=== PATIENT | female | born 1930 | race Caucasian/White ===

== ENCOUNTER 2017-04-21 12:30 | Inpatient (IN) | payer OTHER ==
[~2017-04-21] VITALS: Ht 177.8 cm; Wt 58.1 kg
[~2017-04-21 12:30] MED LIST: ACET325 PO; ALBU90OI6 INH; ASCO500 PO; ASPI81EC PO; Aspirin EC81 MG PO; CALCAVITDA PO; CALCIUM PO; CEFP250 PO; CENTRUM SILVER1 EAC3 PO; CLIN300 PO; CLON.2TP TOP; CODACE30 PO; CRANBERRY CAPS PO; CYAN500 SL; Calcium Carbon500 MG PO; DOCU100 PO; DOXY100 PO; Diclofenac Pota50 MG PO; FISH1000 PO; HYDACE5 PO; HYDSUL200 PO; KETO10 PO; LEVSOD75 PO; LOSA50 PO; LOSHYD PO; MELO7.5 PO; MULVITMINF PO; NATURE'S TEARS15 M1 BOTHEYES; NIFE60ER PO; Nifedical Xl30 MG PO; OMEG1CAP30 PO; OMEP20ER PO; PRAV20 PO; Pedi-Dri 100,0060 GM TOP; RXCODACET PO; SUSTENEX PO; TELM80 PO; TRIE10TC TOP; UBID10 PO; VALACYCLOVIR1000 MG PO; [UNRECOGNIZED DRUG - CODE] PO
[2017-04-21 12:49] LABS: Source, Urine Catheter
[2017-04-21 13:05] LABS: Bilirubin, Urine Neg (Neg); Blood, Urine 2+ (Neg); Glucose Qualitative, Urine Neg (Neg); Ketones, Urine Neg (Neg); Leukocyte Esterase, Urine 1+ (Neg); Nitrite, Urine Neg (Neg); Protein, Urine Neg (Neg); Urobilinogen, Urine NORM (Normal)
[2017-04-21 13:07] LABS: BASOPHILS ABSOLUTE AUTO 0.02 K/mm3 (0.00-0.23); BASOPHILS PERCENT AUTO 0 % (0-2); EOSINOPHILS ABSOLUTE AUTO 0.16 K/mm3 (0.00-0.68); EOSINOPHILS PERCENT AUTO 1 % (0-6); Hematocrit 31.1 % (33.0-51.0); Hemoglobin 9.6 g/dL (11.5-16.0); IMMATURE GRAN ABSOLUTE AUTO 0.13 K/mm3 (0.00-0.10); IMMATURE GRAN PERCENT AUTO 1 % (0-1); LYMPHOCYTES ABSOLUTE AUTO 3.79 K/mm3 (0.84-5.20); LYMPHOCYTES PERCENT AUTO 17 % (21-46); MONOCYTES ABSOLUTE AUTO 1.57 K/mm3 (0.16-1.47); MONOCYTES PERCENT AUTO 7 % (4-13); Mean Corpuscular HGB 27.7 pg (26.0-34.0); Mean Corpuscular HGB Conc 30.9 g/dL (31.5-36.5); Mean Corpuscular Volume 90 fL (80-100); Mean Platelet Volume 8.3 fL (9.1-12.4); NEUTROPHILS ABSOLUTE AUTO 17.19 K/mm3 (1.96-9.15); NEUTROPHILS PERCENT AUTO 75 % (41-73); Platelet Count 391 K/mm3 (150-400); RDW Coefficient Variation 15.2 % (11.7-14.2); RDW Standard Deviation 49.6 fL (35.1-46.3); Red Blood Cell Count 3.47 M/mm3 (3.80-5.20); White Blood Cell Count 22.86 K/mm3 (4.00-11.30)
[2017-04-21 13:16] LABS: Appearance, Urine Clear (Clear); Color, Urine Yellow (P-Yellow)
[2017-04-21 13:17] LABS: Amorphous Light (0-Heavy); Bacteria Mod /hpf; Squamous Epithelial Cells Few /hpf (Few)
[2017-04-21 13:18] LABS: Albumin/Globulin Ratio 0.7 (0.8-1.8); Bilirubin, Total 0.3 mg/dL (0.1-1.0); Bun/Creatinine Ratio 18.6 (12.0-20.0); Calcium, Blood 8.8 mg/dL (8.5-10.1); Creatinine, Blood 1.72 mg/dL (0.40-1.00); Globulin, Blood 4.1 g/dL (2.2-4.0); Potassium, Blood 4.7 mmol/L (3.5-5.5); Total Protein, Blood 7.1 g/dL (6.4-8.2)
[2017-04-21] MEDS ORDERED: CALTRATE 600 +1 EACH PO (13:41)
[2017-04-21] MEDS ORDERED: DIPATRL PO (13:41)
[2017-04-21] MEDS ORDERED: HYDSUL200 PO (13:42)
[2017-04-21] MEDS ORDERED: LEVSOD75 PO (13:42)
[2017-04-21] MEDS ORDERED: Prozac40 MG PO (13:42)
[2017-04-21] MEDS ORDERED: LOSARTAN-HCTZ1 EAC1 PO (13:43)
[2017-04-21] MEDS ORDERED: MEMA10 PO (13:43)
[2017-04-21] MEDS ORDERED: OLAN2.5 PO (13:45)
[2017-04-21] MEDS ORDERED: NIFE60ER PO (13:45)
[2017-04-21] MEDS ORDERED: VITAMIN D32000 UNI1 PO (13:46)
[2017-04-21] MEDS ORDERED: VIBERZI100 MG PO (13:46)
[2017-04-21] MEDS ORDERED: ACET325 PO (13:47)
[2017-04-21] MEDS ORDERED: Ativan1 MG PO (13:48)
--- NOTE | 2017-04-21 16:40 | NUR ---
NEW ER ADMIT APPROX 1630. BROUGHT TO ER FROM [facility]. SHE IS A/O X3-4. DX PNEUMONIA, SEPSIS. GIVEN IV FLUIDS & ANTIBX IN ER. STATE WEAKNESS/FATIGUE. STATE NO COUGH, NO SOB. LUNGS DECREASED, BIOX 98% RA. TEMP 100.8, SHE WAS GIVEN 1 GRAM TYLENOL IN ED. SHE STATE DNR/DNI, ORDER PLACED BY ER DR. CARLOS HERNÁNDEZ, WILL HAVE DR POWELL ADDRESS WHEN IN TO SEE PT. NO ORDERS @ THIS TIME. PT RESTING/SLEEPING.
[2017-04-21] MEDS ORDERED: ALUM-MAG HYDRO360 ML PO (16:56)
[2017-04-21] MEDS ORDERED: Artificial Tea1 EACH BOTHEYES (16:58)
[2017-04-21] MEDS ORDERED: BISA10S PR (17:01)
[2017-04-21] MEDS ORDERED: Anti-Diarrhea2 MG PO (18:43)
[2017-04-21] MEDS ORDERED: Milk Of Ma400 MG/5 M PO (18:45)
[2017-04-21] MEDS ORDERED: Systane 0.3-0.1 EACH BOTHEYES (18:47)
[2017-04-22 05:33] LABS: BASOPHILS ABSOLUTE AUTO 0.02 K/mm3 (0.00-0.23); BASOPHILS PERCENT AUTO 0 % (0-2); EOSINOPHILS PERCENT AUTO 1 % (0-6); Hematocrit 29.8 % (33.0-51.0); Hemoglobin 9.4 g/dL (11.5-16.0); IMMATURE GRAN ABSOLUTE AUTO 0.06 K/mm3 (0.00-0.10); IMMATURE GRAN PERCENT AUTO 0 % (0-1); LYMPHOCYTES PERCENT AUTO 15 % (21-46); MONOCYTES ABSOLUTE AUTO 1.54 K/mm3 (0.16-1.47); MONOCYTES PERCENT AUTO 9 % (4-13); Mean Corpuscular HGB 28.3 pg (26.0-34.0); Mean Corpuscular HGB Conc 31.5 g/dL (31.5-36.5); Mean Corpuscular Volume 90 fL (80-100); Mean Platelet Volume 8.6 fL (9.1-12.4); NEUTROPHILS ABSOLUTE AUTO 12.21 K/mm3 (1.96-9.15); NEUTROPHILS PERCENT AUTO 75 % (41-73); Platelet Count 280 K/mm3 (150-400); RDW Coefficient Variation 15.3 % (11.7-14.2); Red Blood Cell Count 3.32 M/mm3 (3.80-5.20); White Blood Cell Count 16.33 K/mm3 (4.00-11.30)
[2017-04-22 05:58] LABS: Bun/Creatinine Ratio 19.1 (12.0-20.0); Calcium, Blood 7.9 mg/dL (8.5-10.1); Creatinine, Blood 1.57 mg/dL (0.40-1.00); Potassium, Blood 4.6 mmol/L (3.5-5.5)
[2017-04-22 06:00] LABS: Thyroid Stimulating Hormone 1.8 uIU/mL (0.360-4.800)
--- NOTE | 2017-04-22 06:09 | NUR ---
SHIFT SUMMARY: PATIENT IS A&OX4 UP TO BATHROOM WITH WALKER AND MINIMAL ASSIST OF ONE, VS ARE STABLE NO COMPLIANTS OF PAIN, NO RESPIRATORY DISTRESS. WILL CONTINUE TO MONITOR.
--- NOTE | 2017-04-22 16:42 | NUR ---
SUMMARY PT HAS BEEN A/O X3 TODAY, SHE IS SOMEWHAT [place], PLEASANT/COOPERATIVE AFFECT. LBKA, SHE IS ABLE TO PUT ON & TAKE OFF PROSTHESIS WITH SBA TO BR. SHE STATE CONTINUING FATIGUE HOWEVER STATE FEELING IMPROVED. LOW GRADE TEMP THIS AM, HOWEVER NORMAL THIS KIAH @ 98.4, NO CHILLS OR SHAKES TODAY. IV ANTIBX CONTINUE, WBC TRENDING DOWN @ 16.3
--- NOTE | 2017-04-23 04:26 | NUR ---
SHIFT SUMMARY NO ACUTE CHANGES TO REPORT OVERNIGHT, PT HAS SLEPT FOR MOST OF THE NIGHT AND HAS NOT HAD ANY COMPLAINTS. MEDICATED X1 FOR GAS PAIN WITH TYLENOL. VITALS STABLE. IV ANTIBIOTICS INFUSED PER ORDERS. PT A/OX4. PLESANT AND COOPERATIVE WITH CARE. BED IN LOWEST POSITION, CALL LIGHT WITHIN REACH. WILL CONTINUE TO MONITOR AND REPORT TO ONCOMING RN.
--- NOTE | 2017-04-23 12:50 | NUR ---
PATIENT SITTING IN BED EATING LUNCH TRAY DENIES DISTRESS; STAB SETTER AND DRILLER CONSULT COMPLETE.
--- NOTE | 2017-04-23 14:50 | NUR ---
Mrs. Samuel was awake and welcoming. She is slightly confused and a little repetitive. She tells me that she is living in assited living and her has remained in their home. She misses being near him, but states she feels safe and cared for by her facility and staff. She had no complaints or concerns. She smiles easily and appeared to enjoy companionship and conversation. I provided encouragement and prayer. I will remain available.
[2017-04-23] MEDS ORDERED: CEFP250 PO (14:51)
--- NOTE | 2017-04-23 16:39 | NUR ---
DISCHARGE SUMMARY PT DISCHARGE WITH SPOUSE POV TO RETURN TO [facility]; NO ACUTE DISTRESS NO PAIN; IV DISCONTINUED INTACT SITE CARE GIVEN; ALL MED CHANGES OR ADDITIONS FAXED TO [facility]; ASSISTED TO CAR VIA W/C
[2017-05-10] MEDS ORDERED: DIPATRL (10:18)
[2017-05-10] MEDS ORDERED: Prozac40 MG PO (10:18)
[2018-04-30] MEDS ORDERED: Cipro250 MG PO (09:45)
[2018-05-01] MEDS ORDERED: VIBERZI100 MG PO (16:43)
[2018-05-03] MEDS ORDERED: LORA1 PO (10:23)
[2018-05-03] MEDS ORDERED: ATROPINE 0.01%-10 ML SL (10:23)
[2018-05-03] MEDS ORDERED: SCOPOLAMINE1 EACH TOP (10:24)
[2018-05-03] MEDS ORDERED: MORP20L SL (10:24)
== END 2017-04-23 15:10 | disposition home or self-care (01) | DRG 864 ==
LOC: ER 12:30 → MEDS 12:31 → ER 12:31 → MEDS 12:31
PROVIDERS: Emergency Medicine; ADMIT Family Medicine
DX: R50.9 Fever, unspecified (principal); N17.9 Acute kidney failure, unspecified; D63.1 Anemia in chronic kidney disease; F03.90 Unspecified dementia, unspecified severity, without behavioral disturbance, psychotic disturbance, mood disturbance, and anxiety; I12.9 Hypertensive chronic kidney disease with stage 1 through stage 4 chronic kidney disease, or unspecified chronic kidney disease; N18.9 Chronic kidney disease, unspecified; E03.9 Hypothyroidism, unspecified; M85.80 Other specified disorders of bone density and structure, unspecified site; K58.0 Irritable bowel syndrome with diarrhea; F41.9 Anxiety disorder, unspecified; G25.81 Restless legs syndrome; H91.90 Unspecified hearing loss, unspecified ear; L93.0 Discoid lupus erythematosus; Z89.612 Acquired absence of left leg above knee; Z85.828 Personal history of other malignant neoplasm of skin; Z96.642 Presence of left artificial hip joint; Z87.891 Personal history of nicotine dependence; Z79.82 Long term (current) use of aspirin; Z79.899 Other long term (current) drug therapy; Z88.0 Allergy status to penicillin; Z88.2 Allergy status to sulfonamides
CPT/HCPCS: 36415; 71010; 80048; 80053; 81001; 83605; 84443; 85025; 87040; 87086; 96361; 96365; 99285; J0456; J0696; J1650; J1956; J7030; J7050; P9612

== ENCOUNTER → 2018-03-25 | Outpatient (CLI) | payer OTHER ==
[~2018-03-25] MED LIST changes: +ALUM-MAG HYDRO360 ML PO; +ASPI81CH PO; +Anti-Diarrhea2 MG PO; +Artificial Tea1 EACH BOTHEYES; -Aspirin EC81 MG PO; +Ativan1 MG PO; +BISA10S PR; +CALTRATE 600 +1 EACH PO; +DIPATRL; +DIPATRL PO; +LOSARTAN-HCTZ1 EAC1 PO; +MEMA10 PO; +Milk Of Ma400 MG/5 M PO; +OLAN5 PO; +Prozac20 MG; +Prozac40 MG PO; +Systane 0.3-0.1 EACH BOTHEYES; +VIBERZI100 MG PO; +VITAMIN D32000 UNI1 PO
[2018-03-25 10:16] LABS: Source, Urine Clean Catch
[2018-03-25 10:30] LABS: Bilirubin, Urine Neg (Neg); Blood, Urine 1+ (Neg); Glucose Qualitative, Urine Neg (Neg); Ketones, Urine Neg (Neg); Leukocyte Esterase, Urine 1+ (Neg); Nitrite, Urine Pos (Neg); Protein, Urine 1+ (Neg); Urobilinogen, Urine NORM (Normal)
[2018-03-25 10:37] LABS: Appearance, Urine Hazy (Clear); Bacteria Mod /hpf; Color, Urine Yellow (P-Yellow); Red Blood Cells, Urine 0-2 /hpf (0-2); Squamous Epithelial Cells Not Seen /hpf (Few)
== END ==
LOC: LAB SHORT 10:13 → LAB 10:13
PROVIDERS: Family Medicine
DX: N39.0 Urinary tract infection, site not specified (principal)
CPT/HCPCS: 81001

== ENCOUNTER 2018-07-30 18:26 | Emergency (ER) | payer OTHER ==
[~2018-07-30] VITALS: Ht 170.2 cm; Wt 54.4 kg
[~2018-07-30 18:26] MED LIST changes: -ASPI81CH PO; +ATROPINE 0.01%-10 ML SL; +Aspirin EC81 MG PO; +Cipro250 MG PO; +LORA1 PO; +MORP20L SL; +OLAN2.5 PO; -OLAN5 PO; -Prozac20 MG; +SCOPOLAMINE1 EACH TOP
[2018-07-30] MEDS ORDERED: Vibramycin100 MG PO (19:21)
== END 2018-07-30 20:32 | disposition home or self-care (01) ==
LOC: ER 18:26
DX: S61.451A Open bite of right hand, initial encounter (principal); I10 Essential (primary) hypertension; Z88.0 Allergy status to penicillin; Z88.2 Allergy status to sulfonamides; Z79.899 Other long term (current) drug therapy; Z87.891 Personal history of nicotine dependence; W50.3XXA Accidental bite by another person, initial encounter
CPT/HCPCS: 73130; 90471; 90714; 99283-25

== ENCOUNTER → 2019-01-01 | Outpatient (CLI) | payer OTHER ==
[~2019-01-01] MED LIST changes: +Vibramycin100 MG PO
[2019-01-01 13:56] LABS: Bilirubin, Urine Neg (Neg); Blood, Urine Neg (Neg); Glucose Qualitative, Urine Neg (Neg); Ketones, Urine Neg (Neg); Leukocyte Esterase, Urine Neg (Neg); Nitrite, Urine Neg (Neg); Protein, Urine 3+ (Neg); Urobilinogen, Urine NORM (Normal)
[2019-01-01 14:06] LABS: Appearance, Urine Hazy (Clear); Color, Urine Yellow (P-Yellow)
[2019-01-01 15:23] LABS: Bacteria Many /hpf; Red Blood Cells, Urine Not Seen /hpf (0-2); Squamous Epithelial Cells Many /hpf (Few); White Blood Cells, Urine 0-2 /hpf (0-5)
== END ==
LOC: LAB 12:28 → LAB SHORT 12:28
PROVIDERS: Physician Assistant
DX: N39.0 Urinary tract infection, site not specified (principal)
CPT/HCPCS: 81001; 87086

== ENCOUNTER 2019-03-25 13:09 | Emergency (ER) | payer OTHER ==
[~2019-03-25] VITALS: Ht 177.8 cm; Wt 68.0 kg
== END 2019-03-25 15:21 | disposition home or self-care (01) ==
LOC: ER 13:09
DX: S01.81XA Laceration without foreign body of other part of head, initial encounter (principal); S16.1XXA Strain of muscle, fascia and tendon at neck level, initial encounter; I10 Essential (primary) hypertension; Z87.891 Personal history of nicotine dependence; Z89.512 Acquired absence of left leg below knee; Z88.0 Allergy status to penicillin; Z88.2 Allergy status to sulfonamides; Z79.899 Other long term (current) drug therapy; W01.10XA Fall on same level from slipping, tripping and stumbling with subsequent striking against unspecified object, initial encounter
CPT/HCPCS: 70450; 72125; 99284-25

== ENCOUNTER → 2019-10-18 | Outpatient (CLI) | payer OTHER ==
[~2019-10-18] MED LIST changes: +ANTACID PLUS A355 ML PO; +LOPE2C PO; +MILK OF MA400 MG/5 M PO; +Mirtazapine7.5 MG PO; +Nystatin15 GM TOP; +OLAN5 PO; +PRED20 PO; +Prednisone10 MG PO; +Q-Tussin100 MG/5 M PO; +SERT100 PO; +Triamcinolone A15 G3 TOP
[2019-10-18 11:28] LABS: Source, Urine Clean Catch
[2019-10-18 12:59] LABS: Bilirubin, Urine Neg (Neg); Blood, Urine Neg (Neg); Glucose Qualitative, Urine Neg (Neg); Ketones, Urine 1+ (Neg); Leukocyte Esterase, Urine 1+ (Neg); Nitrite, Urine Neg (Neg); Protein, Urine 1+ (Neg); Specific Gravity, Urine 1.015 (1.003-1.022); Urobilinogen, Urine NORM (Normal)
[2019-10-18 13:21] LABS: Appearance, Urine Hazy (Clear); Color, Urine Yellow (P-Yellow)
[2019-10-18 13:22] LABS: Bacteria Few /hpf; Red Blood Cells, Urine Not Seen /hpf (0-2); Squamous Epithelial Cells Few /hpf (Few); White Blood Cells, Urine 0-2 /hpf (0-5)
== END | disposition home or self-care (01) ==
LOC: LAB 08:30 → LAB SHORT 08:30
PROVIDERS: Family Medicine
DX: N39.0 Urinary tract infection, site not specified (principal)
CPT/HCPCS: 81001; 87077; 87086; 87186

== ENCOUNTER → 2020-03-20 | Outpatient (CLI) | payer OTHER ==
[2020-03-20 12:13] LABS: Source, Urine Catheter
[2020-03-20 13:52] LABS: Appearance, Urine Cloudy (Clear); Bilirubin, Urine Neg (Neg); Blood, Urine 1+ (Neg); Color, Urine Yellow (P-Yellow); Glucose Qualitative, Urine Neg (Neg); Ketones, Urine Neg (Neg); Leukocyte Esterase, Urine 3+ (Neg); Nitrite, Urine Neg (Neg); Protein, Urine 1+ (Neg); Specific Gravity, Urine 1.015 (1.003-1.022); Urobilinogen, Urine NORM (Normal)
[2020-03-20 14:47] LABS: Amorphous Heavy (0-Heavy); Bacteria Mod /hpf; Mucus Light (0-Heavy); Renal Epithelial Rare /hpf (0-Rare); Squamous Epithelial Cells Few /hpf (Few); Transitional Epithelial Cells Few /hpf (0-Rare)
== END | disposition home or self-care (01) ==
LOC: LAB SHORT 12:11 → LAB 12:11
PROVIDERS: Family Medicine
DX: N39.0 Urinary tract infection, site not specified (principal)
CPT/HCPCS: 81001; 87086

== ENCOUNTER → 2020-07-22 | Outpatient (CLI) | payer OTHER ==
[2020-07-22 17:43] LABS: Appearance, Urine Cloudy (Clear); Bilirubin, Urine Neg (Neg); Blood, Urine 2+ (Neg); Color, Urine Yellow (P-Yellow); Glucose Qualitative, Urine Neg (Neg); Ketones, Urine Neg (Neg); Leukocyte Esterase, Urine 3+ (Neg); Nitrite, Urine Pos (Neg); Protein, Urine 1+ (Neg); Specific Gravity, Urine 1.015 (1.003-1.022); Urobilinogen, Urine NORM (Normal)
[2020-07-22 17:54] LABS: Bacteria Many /hpf; Squamous Epithelial Cells Mod /hpf (Few); White Blood Cells, Urine 25-50 /hpf (0-5)
== END | disposition home or self-care (01) ==
LOC: LAB SHORT 17:38 → PLD 17:38
PROVIDERS: Family Medicine
DX: N39.0 Urinary tract infection, site not specified (principal)
CPT/HCPCS: 81001; 87077; 87086; 87186

== ENCOUNTER → 2020-08-14 | Outpatient (CLI) | payer OTHER ==
[2020-08-14 11:51] LABS: Source, Urine Clean Catch
[2020-08-14 14:55] LABS: Appearance, Urine Cloudy (Clear); Bilirubin, Urine Neg (Neg); Blood, Urine 1+ (Neg); Color, Urine Yellow (P-Yellow); Glucose Qualitative, Urine Neg (Neg); Ketones, Urine Neg (Neg); Leukocyte Esterase, Urine 3+ (Neg); Nitrite, Urine Neg (Neg); Protein, Urine 1+ (Neg); Specific Gravity, Urine 1.015 (1.003-1.022); Urobilinogen, Urine NORM (Normal)
[2020-08-14 15:56] LABS: Bacteria Many /hpf; Squamous Epithelial Cells Few /hpf (Few); Transitional Epithelial Cells Few /hpf (0-Rare); White Blood Cells, Urine TNTC /hpf (0-5)
== END | disposition home or self-care (01) ==
LOC: LAB SHORT 11:00 → LAB 11:00
PROVIDERS: Family Medicine
DX: N39.0 Urinary tract infection, site not specified (principal)
CPT/HCPCS: 81001; 87086

== ENCOUNTER → 2021-03-14 | Outpatient (CLI) | payer OTHER ==
[2021-03-14 10:19] LABS: Source, Urine Clean Catch
[2021-03-14 11:29] LABS: Appearance, Urine Cloudy (Clear); Bilirubin, Urine Neg (Neg); Blood, Urine 3+ (Neg); Color, Urine Yellow (P-Yellow); Glucose Qualitative, Urine Neg (Neg); Ketones, Urine Neg (Neg); Leukocyte Esterase, Urine 3+ (Neg); Nitrite, Urine Pos (Neg); Protein, Urine 2+ (Neg); Urobilinogen, Urine NORM (Normal)
[2021-03-14 11:53] LABS: Bacteria Many /hpf; Squamous Epithelial Cells Rare /hpf (Few); Transitional Epithelial Cells Rare /hpf (0-Rare); White Blood Cells, Urine TNTC /hpf (0-5)
== END ==
LOC: LAB 08:00 → LAB SHORT 08:00
PROVIDERS: Family Medicine
DX: N39.0 Urinary tract infection, site not specified (principal)
CPT/HCPCS: 81001; 87086

== ENCOUNTER 2021-04-12 20:38 | Emergency (ER) | payer OTHER ==
[~2021-04-12] VITALS: Ht 167.6 cm; Wt 68.0 kg
== END 2021-04-12 23:09 | disposition home or self-care (01) ==
LOC: ER 20:38
DX: S00.83XA Contusion of other part of head, initial encounter (principal); I10 Essential (primary) hypertension; E78.5 Hyperlipidemia, unspecified; Z87.891 Personal history of nicotine dependence; Z88.0 Allergy status to penicillin; Z88.2 Allergy status to sulfonamides; Z88.8 Allergy status to other drugs, medicaments and biological substances; Z79.899 Other long term (current) drug therapy; W06.XXXA Fall from bed, initial encounter
CPT/HCPCS: 70450; 72125; 99284-25